=== PATIENT | male | born 1960 | race Caucasian/White ===

== ENCOUNTER 2025-08-31 00:24 | Day surgery (SDC) | payer OTHER, SELFPAY ==
[2025-08-16 08:27] VITALS: BMI 30.2
--- OUTSIDE RECORDS SUMMARY | 2025-08-31 00:27 | XMS_ITS | Data Portability ---
Author Organization [facility], Main Office Address [address] [place] [address] Assessment Encounter Date Assessment Date Assessment LastModified by Organization Details LastModified Time 02/18/2023 02/18/2023 Low-salt diet avoid red meat and saturated fats and cheeses follow-up with me in 6 months blood work ordered [email or web address] Not available 04/06/2023 16:23:04 09/25/2023 09/25/2023 Diagnosis discussed continue current therapy. Doxycycline 100 p.o. b.i.d. 1 week call if not improved. Labs reviewed [email or web address] Not available 09/25/2023 21:30:24 Plan of Treatment Reminders Order Date Submit Date Provider Last Modified By Organization Details Last Modified Time Details Appointments None recorded. Lab lipid panel, serum 2022 023 [employer] [facility], [facility] [place], [address], 09:18:24 CMP, serum or plasma 2022 023 [employer] [facility], [facility], [place], [address], 3 09:18:24 Referral None recorded. Procedures None recorded. Surgeries None recorded. Imaging None recorded. Medication Orders doxycycline hyclate 100 mg capsule 2022 023 [email or web address] [facility]60, [address], [place], [id number], 14:58:03 allopurinol 300 mg tablet [address] [facility]212, [address], [place], [id number], 3 14:58:03 lisinopril 20 mg-hydrochl orothiazide 25 mg tablet [address] [facility]68808, [address] [place], [place], [id number], 3 14:58:03 rosuvastati n 10 mg tablet [address] [facility]19495, [address] [place], [place], [id number], 3 14:58:03 allopurinol 300 mg tablet [address] [facility]65857, [address] [place], [place], [id number], 3 17:31:02 lisinopril 20 mg-hydrochl orothiazide 25 mg tablet [address] [facility] #39564, [address] [place], [place], [id number], 3 17:31:02 rosuvastati n 10 mg tablet [address] [facility]09085, [address] [place], [place], [id number], 3 17:31:02 Patient TargetsNo targets recorded. Patient InstructionsNo instructions recorded. Reason for Referral None Reported. Results Created Date Observation Date Name Description Value Unit Range Abnormal Flag Note LastModifiedBy Organization Detail LastModifiedTime 09/23/20 23 09/24/2023 LIPID PANEL WITH RATIO S cholesterol, total 174 mg/dL <200 normal Not Available [facility] [address] [address] [place], [address], 09/24/2023 01:13:07 09/23/20 23 09/24/2023 LIPID PANEL WITH RATIO S HDL cholesterol 50 mg/dL > or = 40 normal Not Available [address] [address] [place], [address], 09/24/2023 01:13:07 09/23/20 23 09/24/2023 LIPID PANEL WITH RATIO S triglyceride s 218 mg/dL <150 high If a non-f astin g speci men was colle cted, consi paulette repea t trigl yceri de testi ng on a fasti ng speci men if clini luda indic ated. Levon kumar et al. J. of Clin. Lipid ol. 2015; 9:129 -169. Not Available [address] [address] [place], [address], 09/24/2023 01:13:07 09/23/20 23 09/24/2023 LIPID PANEL WITH RATIO S LDL-choleste rol 92 mg/dL _(gibran c) normal Refer ence range : <100 Ethan able range <100 mg/dL for prima ry preve ntion ; <70 mg/dL for patie nts with CHD or diabe tic patie nts with > or = 2 CHD risk facto rs. LDL-C is now calcu lated using the Sandrine n-Hop kins checo andrews n, which is a valid ated novel riazo d lani taylor r accur acy than the Fried yvan equat ion in the estim ation of LDL-C . Sandrine martinez SS et al. KENDELL. 2013; 310(1 9): 2061- 2068 (http ://ed ucati on.Qu estDi ulices tics. com/f aq/FA Q164) Not Available [facility] [address] [address], [place], [address], 09/24/2023 01:13:07 09/23/20 23 09/24/2023 LIPID PANEL WITH RATIO S chol/HDLC ratio 3.5 (calc ) <5.0 normal Not Available [facility] [address] [place], [address], 09/24/2023 01:13:07 09/23/2009/24/2023 LIPID PANEL WITH RATIO S LDL/HDL ratio 1.8 (calc ) Below [place] ge Risk: <2.28 [place] Risk: 2.29- 4.90 Moder ate Risk: 4.91- 7.12 High Risk: >7.13 Not Available [facility] [address] [address], [place], [address], 09/24/2023 01:13:07 09/23/2009/24/2023 LIPID PANEL WITH RATIO S non HDL cholesterol 124 mg/dL _(gibran c) <130 normal For patie nts with diabe francie plus 1 major ASCVD risk facto r, treat ing to a non-H DL-C goal of <100 mg/dL (LDL- C of <70 mg/dL ) is consi dered a thera peuti c optio n. Not Available [facility] [address] [address] [place], [address], 09/24/2023 01:13:07 09/23/2009/24/2023 COMPR EHENS JOSH METAB OLIC PANEL glucose 114 mg/dL 65-99 high Fasti ng refer ence inter dylan For someo ne witho ut known diabe francie, a gluco se value betwe en 100 and 125 mg/dL is consi stent with predi abete s and shoul d be confi rmed with a follo w-up test. Not Available [facility] [address] [place], [address], 09/24/2023 01:13:08 09/23/2009/24/2023 COMPR EHENS JOSH METAB OLIC PANEL urea nitrogen (BUN) 14 mg/dL 7-25 normal Not Available [facility] [address] [place], [address], 09/24/2023 01:13:08 09/23/20 23 09/24/2023 COMPR EHENS JOSH METAB OLIC PANEL creatinine 1.17 mg/dL 0.70-1 .35 normal Not Available [address], [address], 09/24/2023 01:13:08 09/23/20 23 09/24/2023 COMPR EHENS JOSH METAB OLIC PANEL eGFR 71 mL/mi n/1.7 3m2 > or = 60 normal Not Available [address], [address], 09/24/2023 01:13:08 09/23/20 23 09/24/2023 COMPR EHENS JOSH METAB OLIC PANEL BUN/creatini ne ratio SEE NOTE: (calc ) 6-22 Not Repor isael: BUN and Creat inine are withi n refer ence range . Not Available [address], [address], 09/24/2023 01:13:08 09/23/20 23 09/24/2023 COMPR EHENS JOSH METAB OLIC PANEL sodium 135 mmol/ L 135-14 6 normal Not Available [address], [address], 09/24/2023 01:13:08 09/23/20 23 09/24/2023 COMPR EHENS JOSH METAB OLIC PANEL potassium 4.7 mmol/ L 3.5-5. 3 normal Not Available [address], [address], 09/24/2023 01:13:08 09/23/20 23 09/24/2023 COMPR EHENS JOSH METAB OLIC PANEL chloride 97 mmol/ L 98-110 low Not Available [address], [address], 09/24/2023 01:13:08 09/23/20 23 09/24/2023 COMPR EHENS JOSH METAB OLIC PANEL carbon dioxide 25 mmol/ L 20-32 normal Not Available [address], [address], 09/24/2023 01:13:08 09/23/20 23 09/24/2023 COMPR EHENS JOSH METAB OLIC PANEL calcium 10.1 mg/dL 8.6-10 .3 normal Not Available [address], [address], 09/24/2023 01:13:08 09/23/20 23 09/24/2023 COMPR EHENS JOSH METAB OLIC PANEL protein, total 7.8 g/dL 6.1-8. 1 normal Not Available [address], [address], 09/24/2023 01:13:08 09/23/20 23 09/24/2023 COMPR EHENS JOSH METAB OLIC PANEL albumin 4.6 g/dL 3.6-5. 1 normal Not Available [address], [address], 09/24/2023 01:13:08 09/23/20 23 09/24/2023 COMPR EHENS JOSH METAB OLIC PANEL globulin 3.2 g/dL_ (calc ) 1.9-3. 7 normal Not Available [address], [address], 09/24/2023 01:13:08 09/23/20 23 09/24/2023 COMPR EHENS JOSH METAB OLIC PANEL albumin/glob ulin ratio 1.4 (calc ) 1.0-2. 5 normal Not Available [address], [address], 09/24/2023 01:13:08 09/23/20 23 09/24/2023 COMPR EHENS JOSH METAB OLIC PANEL bilirubin, total 0.9 mg/dL 0.2-1. 2 normal Not Available [facility] [address] [place], [address], 09/24/2023 01:13:08 09/23/20 23 09/24/2023 COMPR EHENS JOSH METAB OLIC PANEL alkaline phosphatase 61 U/L 35-144 normal Not Available [facility] [employer] [facility] [address] [place], [address], 09/24/2023 01:13:08 09/23/20 23 09/24/2023 COMPR EHENS JOSH METAB OLIC PANEL AST 19 U/L 10-35 normal Not Available [address] [address] [place], [address], 09/24/2023 01:13:08 09/23/20 23 09/24/2023 COMPR EHENS JOSH METAB OLIC PANEL ALT 19 U/L 9-46 normal Not Available [address] [address] [place], [address], 09/24/2023 01:13:08 Result Notes None recorded. Problems Name Problem SNOMED Code Status Onset Date Resolution Date Notes Provider Name and Address Organization Details Recorded Time Benign essential hypertension 8638344 Active Not Available [facility] 3 06:07:48 Pure hypercholeste rolemia 861883740 Active Not Available [facility] 3 06:07:48 Laceration of finger 726414908 Active Not Available [facility] 3 06:07:48 Hypertensive disorder 70161062 Active Not Available [facility] 3 06:07:48 Epidermoid cyst of skin 186671036 Active Not Available [facility] 3 06:07:48 Essential hypertension 83838722 Active Not Available [facility] 3 06:07:49 Hyperuricemia 43287512 Active 2016 Not Available [facility] 3 06:07:48 Hyperlipidemi a 53701754 Active 2021 Not Available [facility] 3 06:07:48 Bronchitis 48745809 Active 2022 LUIS Fernandez, [place] - [facility] 14:41:06 Problem Notes None recorded. Procedures Surgical History Date Name Laterality Status Provider Name and Address Organization Details Recorded Time [place] [facility] completed Not Available [facility] 12/04/20[facility] 05:58:45 procedure on finger completed Not Available [facility] 12/04/2022 05:58:45 reconstruction of nose completed Not Available [facility] 12/04/2022 05:58:45 Imaging Results None recorded. Procedure Notes None recorded. Medical Equipment None Reported. Allergies No known drug allergies Medications Name Sig Start Date Stop Date Status Note LastModified by Organization Details LastModified Time doxycycline hyclate 100 mg capsule TAKE 1 CAPSULE BY MOUTH TWICE DAILY FOR 7 DAYS active Not Available Not Available No t Available hydrocodone 5 mg-acetamino phen 325 mg tablet 09/24 completed Not Available Not Available Not Available prednisone 20 mg tablet 11/27 completed Not Available Not Available Not Available sulfamethoxa zole 800 mg-trimethop rim 160 mg tablet 09/24 completed Not Available Not Available Not Available triamcinolon e acetonide 0.1 % topical ointment 01/29 completed Not Available Not Available Not Available lisinopril 10 mg tablet Take 1 tablet every day by oral route. active Not Available Not Available No t Available lisinopril 20 mg-hydrochlo rothiazide 25 mg tablet TAKE 1 TABLET BY MOUTH EVERY DAY active Not Available Not Available No t Available allopurinol 300 mg tablet TAKE 1 TABLET BY MOUTH EVERY DAY active Not Available Not Available No t Available lisinopril 10 mg-hydrochlo rothiazide 12.5 mg tablet 09/24 completed Not Available Not Available Not Available methylpredni solone 4 mg tablets in a dose pack FPD 10/04 completed Not Available Not Available Not Available colchicine 0.6 mg tablet 11/27 completed Not Available Not Available Not Available rosuvastatin 5 mg tablet Take 2 tablets every day by oral route. 02/18 completed Not Available Not Available Not Available rosuvastatin 10 mg tablet TAKE 1 TABLET BY MOUTH EVERY DAY active Not Available Not Available No t Available Centrum Silver 07/01 completed Not Available Not Available Not Available Suprep Bowel Prep Kit 17.5 gram-3.13 gram-1.6 gram oral solution 06/04 completed Not Available Not Available Not Available Vitals Date Recorded Body mass index (BMI) Body height Heart rate Body temperature Body weight Systolic And Diastolic Provider Name and Address Organization Details Last Updated DateTime 2 32.8 kg/m2 175.26 cm 120 /min 97.2 [degF] 235878. 51 g 130/76 mm[Hg] Not Available [facility] 3 05:59:51 Date Recorded Body height Body mass index (BMI) Body weight Body temperature Heart rate Oxygen saturation Systolic And Diastolic Provider Name and Address Organization Details Last Updated DateTime 3 175.26 cm 33.1 kg/m2 375881. 69 g 98.3 [degF] 95 /min 98 % 126/86 mm[Hg] Chary Camacho RN [facility] 3 15:24:29 Date Recorded Body height Heart rate Body temperature Body weight Systolic And Diastolic Provider Name and Address Organization Details Last Updated DateTime 07/01/2022 175.26 cm 119 /min 97.5 [degF] 027517. 91 g 144/88 mm[Hg] Not Available [facility] 3 05:59:51 Date Recorded Body height Body mass index (BMI) Body weight Body temperature Heart rate Systolic And Diastolic Provider Name and Address Organization Details Last Updated DateTime 3 175.26 cm 31.6 kg/m2 86712.7 7 g 98.3 [degF] 122 /min 128/86 mm[Hg] LUIS Marvin [facility] [employer] [facility] 3 14:04:56 Social History Question Answer Notes LastModified by Organizat ion Details LastModified Time Tobacco Smoking Status Never Smoker Not Available [facility] 12/04/2022 05:55:39 Do You Have An Advance Directive? No MIGRATION.41902 48990 Information not available 12/04/2022 Do You Wear A Helmet When Biking? No MIGRATION.30011 58123 Information not available 12/04/2022 Are You Blind Or Do You Have Difficulty Seeing? No MIGRATION.48512 38740 Information not available 12/04/2022 What Is Your Level Of Caffeine Consumption? None MIGRATION.43700 23148 Information not available 12/04/2022 How Much Tobacco Do You Chew? None MIGRATION.80353 93770 Information not available 12/04/2022 In The 14 Days Before Symptom Onset, Have You Had Close Contact With A Laboratory-confi rmed COVID-19 While That Case Was Ill? No MIGRATION.28513 15544 Information not available 12/04/2022 In The 14 Days Before Symptom Onset, Have You Had Close Contact With A Person Who Is Under Investigation For COVID-19 While That Person Was Ill? No MIGRATION.42420 65641 Information not available 12/04/2022 Are You Deaf Or Do You Have Serious Difficulty Hearing? No MIGRATION.04508 20182 Information not available 12/04/2022 What Type Of Diet Are You Following? REGULAR MIGRATION.49423 62174 Information not available 12/04/2022 Which Illicit Or Recreational Drugs Have You Used? None MIGRATION.69946 92014 Information not available 12/04/2022 What Is The Highest Grade Or Level Of School You Have Completed Or The Highest Degree You Have Received? PV77145-2 MIGRATION.14929 94459 Information not available 12/04/2022 Have There Been Any Changes To Your Family Or Social Situation? No MIGRATION.25489 46562 Information not available 12/04/2022 What Is The Fluoride Status Of Your Home? Unknown MIGRATION.72964 03781 Information not available 12/04/2022 Are There Any Guns Present In Your Home? Yes MIGRATION.60837 85058 Information not available 12/04/2022 Do You Use Insect Repellent Routinely? Yes MIGRATION.85560 61116 Information not available 12/04/2022 Where Do You Live? [facility] MIGRATION.17225 [address]65[address] Information not available 12/04/2022 Do You Have A Medical Power Of Money Position Officer? No MIGRATION.92031 82066 Information not available 12/04/2022 What Was The Date Of Your Most Recent Tobacco Screening? 09/25/2023 [email or web address] Information not available 09/25/2023 Have You Ever Been Counseled For Unhealthy Alcohol Use? No MIGRATION.87570 55245 Information not available 12/04/2022 Do You Have Any Pets? No MIGRATION.34777 47384 Information not available 12/04/2022 What Is Your Relationship Status? MIGRATION.35318 71274 Information not available 12/04/2022 Do You Use Your Seat Belt Or Car Seat Routinely? Yes MIGRATION.28166 81824 Information not available 12/04/2022 Do You Have Smoke And Carbon Monoxide Detectors In Your Home? Yes MIGRATION.02273 95993 Information not available 12/04/2022 Are You Passively Exposed To Smoke? No MIGRATION.67655 04224 Information not available 12/04/2022 Are There Any Smokers In Your House? No MIGRATION.53779 74808 Information not available 12/04/2022 How Much Tobacco Do You Smoke? No MIGRATION.75410 73646 Information not available 12/04/2022 What Types Of Sporting Activities Do You Participate In? Golf MIGRATION.74134 68598 Information not available 12/04/2022 Do You Use Sunscreen Routinely? No MIGRATION.60399 28232 Information not available 12/04/2022 Has Tobacco Cessation Counseling Been Provided? No Not Needed-ne christopher Smoked MIGRATION.65496 32368 Information not available 12/04/2022 How Many Years Have You Smoked Tobacco? 0 MIGRATION.50637 61828 Information not available 12/04/2022 Have You Recently Traveled Abroad? No MIGRATION.77316 60515 Information not available 12/04/2022 Do You Have Difficulty Walking Or Climbing Stairs? No MIGRATION.45874 26022 Information not available 12/04/2022 Do You Have Any Dietary Restrictions? No MIGRATION.70801 42814 Information not available 12/04/2022 Sex: Male Functional Status Question Answer Note LastModified by Organizat ion Details LastModified Time Do you use any illicit or recreational drugs? No MIGRATION.214708 7591 Information not available 12/04/2022 Do you or have you ever used any other forms of tobacco or nicotine? No MIGRATION.655036 7608 Information not available 12/04/2022 What is your level of alcohol consumption? Moderate MIGRATION.755042 1153 Information not available 12/04/2022 Do you or have you ever used smokeless tobacco? Never used smokeless tobacco MIGRATION.492103 8947 Information not available 12/04/2022 Are you currently employed? Yes [email or web address] Information not available 02/18/2023 Do you have difficulty doing errands alone? 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 No MIGRATION.761223 7299 Information not available 12/04/2022 Do you or have you ever used e-cigarettes or vape? Never used electronic cigarettes MIGRATION.300741 9734 Information not available 12/04/2022 What is your exercise level? Occasional MIGRATION.026404 9796 Information not available 12/04/2022 Mental Status Question Answer Note LastModified by Organizat ion Details LastModified Time Do you feel stressed (tense, restless, nervous, or anxious, or unable to sleep at night)? [id number] MIGRATION.62158037 26 Information not available 12/04/2022 Do you have difficulty concentrating, remembering or making decisions? No MIGRATION.12829138 26 Information not available 12/04/2022 Family History Relationship Description Onset Age of this Age Resolved Age Notes LastModified by Organization Details LastModified Time Mother Hypertensive disorder MIGRATION.418 [id number] Not available 12/04/2022 05:58:46 Father Disorder of prostate MIGRATION.285 [id number] Not available 12/04/2022 05:58:46 Medical History Condition Response NERVE DISEASE N BLINDNESS N RHEUMATIC FEVER N KIDNEY STONES N BLADDER PROBLEMS N MRSA N OTHER # 1 Y POLIO N LUNG DISEASE/DISORDER N COPD N RADIATION / CHEMOTHERAPY N Other # 2 N BLOOD DISEASES N EAR OR HEARING PROBLEMS N MUMPS N BOWEL PROBLEMS N DEPRESSION (INCLUDING POST ) N STROKE/TIA N ULCERS N BENIGN PROSTATIC HYPERPLASIA N MEASLES N MYOCARDIAL INFARCTION N OBESITY N GERD/NAUSEA N ANEURYSM N URINARY/BLADDER/KIDNEY PROBLEMS N CORONARY ARTERY DISEASE (CAD) N ADDICTION CONCERNS N Impotence N ENDOMETRIOSIS N USE OF BLOOD THINNERS N SKIN PROBLEMS N GASTROINTESTINAL DISORDER N PERIPHERAL VASCULAR DISEASE N MUSCLE,JOINT OR BONE PROBLEMS N GASTROINTESTINAL BLEEDING N BLOOD CLOTS N ASTHMA N CATARACTS N ERECTILE DYSFUNCTION N VARICOSITIES N GI PROBLEMS N Low Testosterone N INFERTILITY N AIDS/HIV N CHEMOTHERAPY / RADIATION N LIVER DISEASE N MALE HYPOGONADISM N HYPERTENSION Y Deficiency N TOURETTE'S N ANXIETY DISORDER N BLOOD TRANSFUSION N ANEMIA/BLOOD DISORDER N CHRONIC EAR INFECTIONS N BRONCHITIS N TUBERCULOSIS N GLAUCOMA N FOOT PROBLEM N DIVERTICULITIS N SLEEP APNEA N CHICKENPOX N INFECTIOUS DISEASE N PROSTATE N HEART ARRHYTHMIA N INSOMNIA N HIGH CHOLESTEROL / HYPERLIPIDEMIA Y EYE PROBLEMS N HYPERTHYROIDISM N EDEMA N CHRONIC PAIN SYNDROME N HYPOTHYROIDISM N CONSTIPATION N CAROTID BLOCKAGE N BACK / NECK PROBLEMS N HAVE YOU BEEN HOSPITALIZED OR SEEN IN [facility] IN THE PAST YEAR ? N ATHEROSCLEROSIS N BREAST PROBLEMS N DIALYSIS N ECZEMA N OSTEOPOROSIS N ARTHRITIS N APPENDICITIS N DIABETES, TYPE N BAD TEETH N ENT N HEARTBURN / REFLUX N AUTISM SPECTRUM DISORDER (ASD) N HEPATITIS / LIVER DISEASE N GOUT N SLEEP DISORDER N ALZHEIMER'S DISEASE N Brain Problems N DEMENTIA N HERPES N SEIZURES/EPILEPSY N HEADACHES/MIGRAINES N VASCULAR DISEASE N PACEMAKER N Blood Disorder N DIZZINESS N HEART DISEASE/HEART PROBLEMS N KIDNEY DISEASE N MULTIPLE SCLEROSIS N CANCER: SPECIFY N CARDIAC ARRHYTHMIA N ATRIAL FIBRILLATION N Gall Stones N PULMONARY EMBOLISM N AUTOIMMUNE DISEASE N Past Encounters Encounter ID Performer Location Encounter Start Date Encounter Closed Date Diagnosis/Indication Diagnosis SNOMED-CT Code Diagnosis ICD10 Code Diagnosis IMO Codes Diagnosis Note [id number] Tyler Ortez MD [facility] Internal Med [facility] [address] [place] [address] 12/31/2021 00:00:00 01/06/2022 13:51:16 [id number] Tyler Ortez MD [facility] Internal Med [facility] [address] [place] [id number] 1 07/01/2022 00:00:00 07/02/2022 22:02:09 [id number] Tyler Ortez MD [facility] Internal Med Melody baltazar [address] [place] [address] [place] [address] 02/18/2023 15:16:29 02/18/2023 15:52:27 Hyperuricemia 14580518 E79.0 Hyperlipidemia 48027199 E78.5 Hypertensive disorder 38 845695 I10 [id number] Tyler Ortez MD [facility] Internal [facility] [address] [place] [address] [place] [address] 09/25/2023 13:56:59 09/25/2023 14:35:32 Hyperlipidemia 77576609 E78.5 Hypertensive disorder 38 903369 I10 Bronchitis 57474453 J40 Hyperuricemia 61290660 E 79.0 Health Concerns Section Related Observation LastModified by Organization Detai ls LastModified Time None Recorded Concern Status LastModified by Organization Details LastModified Time None Recorded Advance Directives Directive N: Payers Insurance Date Sequence Insurance Name Policy Number Policy Sandoval Covered Member ID Sandoval Member ID Guarantor Name 10/01/2023 1 [facility] [id number] Compa Friend [id number] Compa Friend Notes Date Note Type Note Provider Name and Address Organization Details Recorded Time 02/18/2023 text/html Hypertension no headache no dizziness. Hyperlipidemia does try to follow diet is taking rosuvastatin no side effects. Hyperuricemia no problems with gout flare-up Tyler Ortez MD [address], [place], [address], [employer] 04/06/2023 16:23:22 09/25/2023 text/html Hypertension no headache no dizziness. Hyperlipidemia does try to follow diet is taking rosuvastatin no side effects. Hyperuricemia no problems with gout flare-up. He has had a bit of cough for couple weeks maybe some off colored sputum from time to time but no fever chills night sweats or weight loss Tyler Ortez MD [address], [place], [address], [employer] 09/25/2023 21:30:49
[2025-08-31 09:33] VITALS: BP 146/80; PULSE 118; RESP 20; TEMP 36.4; O2SAT 100
[2025-08-31] MEDS: LACTATED RINGERS 1,000 ML 150 ML IV CONT (09:41)
--- NOTE | 2025-08-31 09:44 | WPDANESEPPF ---
Anes - Initial Pre Proc Eval Procedure: Operation Date: 08/31/25 11:00 Proposed Procedures p Screening Colonoscopy - Mauro Boyer MD Date/Time: 08/31/25 09:44 Surgeon: Mauro Boyer MD Pre Op Diagnosis: Screening Patient Data Age: 65 Gender: M Height: 1.75 m Weight: 93 kg Last Vital Signs Temp 36.4 C L 08/31/25 09:33 Pulse 118 H 08/31/25 09:33 Resp 20 08/31/25 09:33 BP 146/80 H 08/31/25 09:33 Pulse Ox 100 08/31/25 09:33 O2 Del Method Room Air 08/31/25 09:33 Allergies Allergy/AdvReac Type Severity Reaction Status Date / Time No Known Allergies Allergy Verified 08/16/25 08:25 Home Medications ?Medication ?Instructions ?Recorded ?Confirmed ?Type allopurinol 300 mg tablet 300 mg PO DAILY 08/16/25 08/31/25 History lisinopril 20 mg tablet 20 mg PO DAILY 08/16/25 08/31/25 History pravastatin 20 mg tablet 20 mg PO DAILY 08/16/25 08/31/25 History Patient hx anesthesia problems: none Family hx anesthesia problems: none Results Review: All pre-operative results and documents have been reviewed as part of the pre-operative evaluation. [facility] Social History Social History Smoking status: Never smoker Alcohol intake: current Drinks per week: 3 Substance use: never Substance use type: does not use Living arrangements: with family Spiritual care concerns: No Anes - Eval Final PreProcedure Day of Procedure 08/31/25 09:44 Patient weight: obese Heart: tachycardia Lungs: clear to auscultation Airway: Mallampati scale class II Neurological: alert and oriented Last oral intake: >/= 8 hours ASA classification: III Emergent: no Anesthetic plan: proceed Anesthesia type and monitoring: general GIVS and standard monitoring Results Review: All pre-operative results and documents have been reviewed as part of the pre-operative evaluation. Informed Consent: The patient's anesthetic plan and its attendant risks and benefits were discussed with the patient/family/POA. Questions were solicited and answers provided to the satisfaction of the patient/family/POA.
--- NOTE | 2025-08-31 10:06 | PM.HPGS ---
History of Present Illness History of Present Illness Consent: Risks, benefits, and alternatives have been discussed and questions answered. Patient agrees to proceed with procedure. Chief complaint: Screening Narrative: Compa Friend is a 65 year old male with last colonoscopy 10 years ago Review of Systems Review of Systems: All systems reviewed & are unremarkable except as noted in HPI and below PMFSH Past Medical History Medical History (Updated 08/31/25 @ 10:06 by Mauro Boyer MD) Colon cancer screening Social History Social History Smoking status: Never smoker Alcohol intake: current Drinks per week: 3 Substance use: never Substance use type: does not use Living arrangements: with family Spiritual care concerns: No Meds Home Medications and Allergies Home Medications ?Medication ?Instructions ?Recorded ?Confirmed ?Type allopurinol 300 mg tablet 300 mg PO DAILY 08/16/25 08/31/25 History lisinopril 20 mg tablet 20 mg PO DAILY 08/16/25 08/31/25 History pravastatin 20 mg tablet 20 mg PO DAILY 08/16/25 08/31/25 History Allergies Allergy/AdvReac Type Severity Reaction Status Date / Time No Known Allergies Allergy Verified 08/16/25 08:25 Vital Signs Vital Signs - 24 hr 08/31/25 09:33 Temperature 97.5 F L Pulse Rate 118 H Respiratory Rate 20 Blood Pressure 146/80 H Pulse Oximetry 100 Oxygen Delivery Room Air Exam Const: General: comfortable and no acute distress HENMT: Face/Nose/Sinus: Normal nares present Eyes: General: appearance normal, both eyes and all related structures Resp: Auscultation: clear to auscultation bilaterally Cardio: Rate: regular rate Rhythm: regular rhythm GI: Inspection: non-distended GI Palp: Yes Soft to palpation Skin: General skin exam: normal color Extrem: General: normal to inspection Psych: Mental Status: mental status grossly normal Assessment and Plan Assessment and plan (1) Colon cancer screening: Code(s): Z12.11 - Encounter for screening for malignant neoplasm of colon Status: Acute Assessment and Plan: colonoscopy
[2025-08-31 10:19] VITALS: BP 78/53; PULSE 96; RESP 16; O2SAT 96
[2025-08-31 10:29] VITALS: BP 105/66; PULSE 89; RESP 21; O2SAT 99
[2025-08-31 10:39] VITALS: BP 118/62; PULSE 92; RESP 20; O2SAT 99
== END 2025-08-31 10:46 | disposition home or self-care (01) ==
PROVIDERS: PCP Internal Medicine; Referring Provider Internal Medicine; Visit Provider Internal Medicine Gastroenterology
PROC: 0DJD8ZZ Inspection of Lower Intestinal Tract, Via Natural or Artificial Opening Endoscopic (ICD-10-PCS; CPT 45378; principal; 2025-08-31 11:00)
DX: Z12.11 Encounter for screening for malignant neoplasm of colon (principal); K64.8 Other hemorrhoids; K57.30 Diverticulosis of large intestine without perforation or abscess without bleeding; E66.9 Obesity, unspecified; Z68.30 Body mass index [BMI] 30.0-30.9, adult
CPT/HCPCS: 45378; J2704; J7120